=== PATIENT | female | born 1985 | race Caucasian/White ===

== ENCOUNTER 2018-06-22 16:07 | Inpatient (IN) | payer BC ==
[2018-06-22 16:36] LABS: ADD MAN DIFF? NO
[2018-06-22] MEDS: ONDANSETRON 4 MG INJ IV (16:38)
[2018-06-22] MEDS: SOD CHLORIDE 0.9% 1,000 ML IV ×2 (16:38→22:17)
[2018-06-22 16:39] LABS: WHITE BLOOD COUNT 8.1 10^3/ul (4.8-10.8)
[2018-06-22 16:39] LABS: BASOPHILS % 0.4 % (0.0-2.0); EOSINOPHILS % 0.5 % (0.0-7.0); HEMATOCRIT 38.5 % (37.0-47.0); HEMOGLOBIN 12.5 g/dl (12.0-16.0); LYMPHOCYTES % 24.5 % (15.0-51.0); MEAN CORPUSCULAR HEMOGLOBIN 30.3 pg (29.0-33.0); MEAN CORPUSCULAR HGB CONC 32.5 g/dl (32.0-37.0); MEAN CORPUSCULAR VOLUME 93.2 fl (82.0-101.0); MEAN PLATELET VOLUME 10.8 fl (7.4-10.4); MONOCYTE # 0.4 10^3/ul (0.3-0.9); MONOCYTES % 5.4 % (0.0-11.0); NEUTROPHIL # 5.6 10^3/ul (1.6-7.5); PLATELET COUNT 314 10^3/UL (140-415); RED BLOOD COUNT 4.13 10^6/ul (4.20-5.40); RED CELL DISTRIBUTION WIDTH 12.8 % (11.5-14.5)
[2018-06-22] MEDS: KETOROLAC 15 MG INJ IV (16:39)
[2018-06-22 16:43] LABS: ADD UMIC YES; UR ASCORBIC ACID NEGATIVE (NEGATIVE); UR BILIRUBIN (Dip) NEGATIVE (NEGATIVE); UR BLOOD (Dip) 1+ mg/dL (NEGATIVE); UR CLARITY SLIGHTLY CLOUDY (CLEAR); UR COLOR YELLOW (YELLOW); UR GLUCOSE (Dip) NEGATIVE (NEGATIVE); UR KETONES (Dip) TRACE mg/dL (NEGATIVE); UR LEUKOCYTE ESTERASE (Dip) 1+ Leu/ul (NEGATIVE); UR MUCUS FEW /HPF (NONE SEEN); UR NITRITE (Dip) NEGATIVE (NEGATIVE); UR RBC 16 /HPF (0-5); UR SPECIFIC GRAVITY (Dip) 1.017 (1.003-1.030); UR SQUAMOUS EPITHELIAL CELL FEW /HPF (FEW); UR TOTAL PROTEIN (Dip) 1+ mg/dl (NEGATIVE); UR UROBILINOGEN (Dip) NEGATIVE (NEGATIVE); UR WBC 16 /HPF (0-5)
[2018-06-22 16:56] LABS: ALANINE AMINOTRANSFERASE 32 IU/L (13-69); ALBUMIN 4.4 g/dl (3.3-4.9); ALBUMIN/GLOBULIN RATIO 1.33; ALKALINE PHOSPHATASE 80 IU/L (42-121); ANION GAP 15 (8-16); ASPARTATE AMINO TRANSFERASE 34 IU/L (15-46); BILIRUBIN,INDIRECT 0.2 mg/dl (0-1.1); BILIRUBIN,TOTAL 0.2 mg/dl (0.2-1.3); BLOOD UREA NITROGEN 10 mg/dl (7-20); CALCIUM 9.6 mg/dl (8.4-10.2); CARBON DIOXIDE 25 mmol/L (21-31); CHLORIDE 108 mmol/L (97-110); GLUCOSE 108 mg/dl (70-220); LIPASE 51 U/L (23-300); POTASSIUM 4.1 mmol/L (3.5-5.1); SODIUM 144 mmol/L (135-144); TOTAL PROTEIN 7.7 g/dl (6.1-8.1)
[2018-06-22] MEDS: FENTAnyl 50 MCG/ML VIAL IV (19:03)
[2018-06-22] MEDS: CEFTRIAXONE 1 GM/50 ML (PMX) 50 ML IVPB (19:03)
[2018-06-22] MEDS ORDERED: ACETAMINOPHEN 325 MG TAB PO ×2 (19:30→20:00)
[2018-06-22] MEDS ORDERED: ONDANSETRON 4 MG INJ IV ×2 (19:30→20:00)
[2018-06-22] MEDS ORDERED: NACL 0.9% 3 ML SYG IV (20:00)
[2018-06-22] MEDS: HYDROmorphONE 0.5 MG/0.5 ML SYG IV (20:17)
[2018-06-22] MEDS: DOCUSATE SODIUM 100 MG CAP PO (22:18)
[2018-06-22] MEDS: TAMSULOSIN (SR) 0.4 MG CAP PO (22:18)
[2018-06-22] MEDS: BISACODYL (EC) 5 MG TAB PO (22:18)
[2018-06-23 05:41] LABS: ADD MAN DIFF? NO
[2018-06-23] MEDS: SOD CHLORIDE 0.9% 1,000 ML IV ×3 (05:41→21:45)
[2018-06-23 05:42] LABS: BASOPHILS % 0.2 % (0.0-2.0); EOSINOPHILS # 0.1 10^3/ul (0.0-0.5); EOSINOPHILS % 0.9 % (0.0-7.0); HEMATOCRIT 38.8 % (37.0-47.0); HEMOGLOBIN 12.2 g/dl (12.0-16.0); LYMPHOCYTES # 2.8 10^3/ul (0.8-2.9); MEAN CORPUSCULAR HEMOGLOBIN 29.5 pg (29.0-33.0); MEAN CORPUSCULAR HGB CONC 31.4 g/dl (32.0-37.0); MEAN CORPUSCULAR VOLUME 93.7 fl (82.0-101.0); MONOCYTE # 0.6 10^3/ul (0.3-0.9); MONOCYTES % 6.8 % (0.0-11.0); NEUTROPHIL # 4.7 10^3/ul (1.6-7.5); PLATELET COUNT 302 10^3/UL (140-415); RED BLOOD COUNT 4.14 10^6/ul (4.20-5.40)
[2018-06-23 05:42] LABS: WHITE BLOOD COUNT 8.1 10^3/ul (4.8-10.8)
[2018-06-23] MEDS: HYDROmorphONE 0.5 MG/0.5 ML SYG IV ×2 (05:44→21:47)
[2018-06-23 06:06] LABS: HEMOGLOBIN A1C 5.2 % (0-5.9)
[2018-06-23 06:37] LABS: ALANINE AMINOTRANSFERASE 23 IU/L (13-69); ALBUMIN 3.5 g/dl (3.3-4.9); ALKALINE PHOSPHATASE 62 IU/L (42-121); ANION GAP 11 (8-16); ASPARTATE AMINO TRANSFERASE 26 IU/L (15-46); BILIRUBIN,INDIRECT 0.3 mg/dl (0-1.1); BILIRUBIN,TOTAL 0.3 mg/dl (0.2-1.3); BLOOD UREA NITROGEN 9 mg/dl (7-20); CALCIUM 9.2 mg/dl (8.4-10.2); CARBON DIOXIDE 26 mmol/L (21-31); CHLORIDE 110 mmol/L (97-110); CHOL/HDL RATIO 2.5 RATIO; CHOLESTEROL 118 mg/dl (100-200); CREATININE 0.52 mg/dl (0.44-1.00); GLUCOSE 99 mg/dl (70-220); HDL CHOLESTEROL 46 mg/dl (34-82); LDL CHOLESTEROL,CALCULATED 46 mg/dl; MAGNESIUM 1.8 mg/dl (1.7-2.5); POTASSIUM 3.7 mmol/L (3.5-5.1); SODIUM 143 mmol/L (135-144); TOTAL PROTEIN 6.4 g/dl (6.1-8.1); TRIGLYCERIDES 130 mg/dl (0-149)
[2018-06-23 06:54] LABS: THYROID STIMULATING HORMONE 0.753 MIU/L (0.465-4.680)
[2018-06-23] MEDS ORDERED: CEFAZOLIN 1 GM INJ (07:00)
[2018-06-23] MEDS: TAMSULOSIN (SR) 0.4 MG CAP PO ×2 (08:46→21:47)
[2018-06-23] MEDS: DOCUSATE SODIUM 100 MG CAP PO ×2 (09:00→21:00)
[2018-06-23] MEDS: BISACODYL (EC) 5 MG TAB PO (09:00)
[2018-06-23 11:44] LABS: PARTIAL THROMBOPLASTIN TIME 26.4 Sec (25.0-35.0)
[2018-06-23 12:24] LABS: INR 0.97
[2018-06-23] MEDS ORDERED: FENTAnyl 50 MCG/ML VIAL (15:39)
[2018-06-23] MEDS ORDERED: MIDAZOLAM 1 MG/ML 2 ML INJ (15:39)
[2018-06-23] MEDS ORDERED: PROPOFOL 20 ML (18:59)
[2018-06-23] MEDS ORDERED: HYDROmorphONE 1 MG/5 ML IV SYRINGE IV (19:00)
[2018-06-23] MEDS ORDERED: MEPERIDINE 25 MG INJ IV (19:00)
[2018-06-23] MEDS ORDERED: ONDANSETRON 4 MG INJ IV (19:00)
[2018-06-23] MEDS ORDERED: DIPHENHYDRAMINE 50 MG INJ IV (19:00)
[2018-06-23] MEDS ORDERED: ONDANSETRON 4 MG INJ (19:24)
[2018-06-23] MEDS ORDERED: METOCLOPRAMIDE 10 MG INJ (19:24)
[2018-06-23] MEDS: HYDROmorphONE 1 MG/5 ML IV SYRINGE IV ×3 (20:10→20:27)
[2018-06-23] MEDS: CEFTRIAXONE 2 GM/50 ML (PMX) 50 ML IVPB (21:49)
[2018-06-24] MEDS: HYDROmorphONE 0.5 MG/0.5 ML SYG IV ×2 (02:05→05:54)
[2018-06-24 05:17] LABS: ADD MAN DIFF? NO
[2018-06-24 05:23] LABS: BASOPHILS % 0.2 % (0.0-2.0); EOSINOPHILS # 0.1 10^3/ul (0.0-0.5); EOSINOPHILS % 0.6 % (0.0-7.0); HEMATOCRIT 37.5 % (37.0-47.0); HEMOGLOBIN 11.9 g/dl (12.0-16.0); LYMPHOCYTES # 2.1 10^3/ul (0.8-2.9); LYMPHOCYTES % 25.3 % (15.0-51.0); MEAN CORPUSCULAR HEMOGLOBIN 29.5 pg (29.0-33.0); MEAN CORPUSCULAR HGB CONC 31.7 g/dl (32.0-37.0); MEAN CORPUSCULAR VOLUME 92.8 fl (82.0-101.0); MEAN PLATELET VOLUME 10.9 fl (7.4-10.4); MONOCYTE # 0.4 10^3/ul (0.3-0.9); MONOCYTES % 5.2 % (0.0-11.0); NEUTROPHIL # 5.8 10^3/ul (1.6-7.5); NEUTROPHILS % 68.5 % (39.0-77.0); PLATELET COUNT 274 10^3/UL (140-415); RED BLOOD COUNT 4.04 10^6/ul (4.20-5.40); RED CELL DISTRIBUTION WIDTH 12.9 % (11.5-14.5)
[2018-06-24 05:23] LABS: WHITE BLOOD COUNT 8.4 10^3/ul (4.8-10.8)
[2018-06-24 05:35] LABS: ANION GAP 12 (8-16); BLOOD UREA NITROGEN 4 mg/dl (7-20); CALCIUM 8.7 mg/dl (8.4-10.2); CARBON DIOXIDE 26 mmol/L (21-31); CHLORIDE 109 mmol/L (97-110); GLUCOSE 91 mg/dl (70-220); POTASSIUM 4.2 mmol/L (3.5-5.1); SODIUM 143 mmol/L (135-144)
[2018-06-24] MEDS: SOD CHLORIDE 0.9% 1,000 ML IV (05:54)
[2018-06-24] MEDS: KETOROLAC 30 MG INJ IV (09:07)
[2018-06-24] MEDS: BISACODYL (EC) 5 MG TAB PO (09:07)
[2018-06-24] MEDS: DOCUSATE SODIUM 100 MG CAP PO (09:07)
[2018-06-24] MEDS: TAMSULOSIN (SR) 0.4 MG CAP PO (09:07)
== END 2018-06-24 11:30 | disposition home or self-care (01) | DRG 670 ==
LOC: E/R 16:07 → MS1 20:20
PROC: 0TC78ZZ Extirpation of Matter from Left Ureter, Via Natural or Artificial Opening Endoscopic (ICD-10-PCS; principal; 2018-06-23 17:30)
PROC: 0T778DZ Dilation of Left Ureter with Intraluminal Device, Via Natural or Artificial Opening Endoscopic (ICD-10-PCS; 2018-06-23 17:30)
DX: N13.6 Pyonephrosis (principal)
CPT/HCPCS: 36415; 74018; 74176; 74430; 76705; 80048; 80053; 80061; 81001; 81025; 83036; 83690; 83735; 84443; 84703; 85025; 85610; 85730; 87086; 96361; 96374; 96375; 99285-25

== ENCOUNTER 2018-06-29 15:08 | Emergency (ER) | payer BC ==
[2018-06-29 15:38] LABS: ADD MAN DIFF? NO
[2018-06-29] MEDS: ONDANSETRON 4 MG INJ IV (15:43)
[2018-06-29] MEDS: SOD CHLORIDE 0.9% 1,000 ML IV (15:43)
[2018-06-29] MEDS: HYDROmorphONE 1 MG/ML SYG IV (15:43)
[2018-06-29 15:45] LABS: WHITE BLOOD COUNT 9.1 10^3/ul (4.8-10.8)
[2018-06-29 15:45] LABS: BASOPHILS % 0.3 % (0.0-2.0); EOSINOPHILS # 0.1 10^3/ul (0.0-0.5); EOSINOPHILS % 1.1 % (0.0-7.0); HEMATOCRIT 39.7 % (37.0-47.0); HEMOGLOBIN 12.6 g/dl (12.0-16.0); LYMPHOCYTES # 1.7 10^3/ul (0.8-2.9); LYMPHOCYTES % 18.2 % (15.0-51.0); MEAN CORPUSCULAR HEMOGLOBIN 29.4 pg (29.0-33.0); MEAN CORPUSCULAR HGB CONC 31.7 g/dl (32.0-37.0); MEAN CORPUSCULAR VOLUME 92.8 fl (82.0-101.0); MEAN PLATELET VOLUME 10.6 fl (7.4-10.4); MONOCYTE # 0.5 10^3/ul (0.3-0.9); MONOCYTES % 5.1 % (0.0-11.0); NEUTROPHIL # 6.8 10^3/ul (1.6-7.5); NEUTROPHILS % 75.1 % (39.0-77.0); PLATELET COUNT 358 10^3/UL (140-415); RED BLOOD COUNT 4.28 10^6/ul (4.20-5.40); RED CELL DISTRIBUTION WIDTH 12.7 % (11.5-14.5)
[2018-06-29 16:04] LABS: ANION GAP 14 (8-16); BLOOD UREA NITROGEN 13 mg/dl (7-20); CARBON DIOXIDE 26 mmol/L (21-31); CHLORIDE 106 mmol/L (97-110); CREATININE 0.63 mg/dl (0.44-1.00); GLUCOSE 86 mg/dl (70-220); POTASSIUM 3.6 mmol/L (3.5-5.1); SODIUM 142 mmol/L (135-144)
[2018-06-29] MEDS: IOHEXOL 300MG/ML 150 ML BTL (16:12)
[2018-06-29] MEDS: SOD CHLORIDE 0.9% 100 ML (16:12)
[2018-06-29 16:30] LABS: ADD UMIC YES; UR ASCORBIC ACID NEGATIVE (NEGATIVE); UR BACTERIA FEW /HPF (NONE SEEN); UR BILIRUBIN (Dip) NEGATIVE (NEGATIVE); UR BLOOD (Dip) 3+ mg/dL (NEGATIVE); UR CLARITY SLIGHTLY CLOUDY (CLEAR); UR COLOR YELLOW (YELLOW); UR GLUCOSE (Dip) NEGATIVE (NEGATIVE); UR KETONES (Dip) NEGATIVE (NEGATIVE); UR LEUKOCYTE ESTERASE (Dip) 1+ Leu/ul (NEGATIVE); UR MUCUS FEW /HPF (NONE SEEN); UR NITRITE (Dip) NEGATIVE (NEGATIVE); UR RBC > 182 /HPF (0-5); UR SPECIFIC GRAVITY (Dip) 1.012 (1.003-1.030); UR SQUAMOUS EPITHELIAL CELL FEW /HPF (FEW); UR TOTAL PROTEIN (Dip) 2+ mg/dl (NEGATIVE); UR UROBILINOGEN (Dip) NEGATIVE (NEGATIVE); UR WBC 27 /HPF (0-5)
[2018-06-29] MEDS: CEFTRIAXONE 1 GM/50 ML (PMX) 50 ML IVPB (19:28)
== END 2018-06-29 20:15 | disposition home or self-care (01) ==
LOC: E/R 15:08
DX: N23 Unspecified renal colic (principal); N39.0 Urinary tract infection, site not specified
CPT/HCPCS: 36415; 74177; 80048; 81001; 81025; 85025; 96374; 96375; 99285-25